=== PATIENT | male | born 1980 | race Caucasian/White ===

== ENCOUNTER 2017-03-13 09:00 | Emergency (ER) | payer SELFPAY ==
[~2017-03-13] VITALS: Ht 182.9 cm; Wt 90.7 kg
--- NOTE | 2017-03-13 09:30 | RAD ---
Right knee with patella, 4 views, 03/13/2017: History: Knee pain No fracture or dislocation is identified. No significant arthritic change is seen. IMPRESSION: No acute right knee abnormality is detected.
[2017-03-13 09:42] VITALS: BP 120/81
--- NOTE | 2017-03-13 10:16 | PHYS DOC ---
Past Medical History Past Medical History: No Pertinent History, Other Additional Past Medical Histor: SKULL FX Past Surgical History: Cholecystectomy, Other Additional Past Surgical Histo: RECONSTRUCTION SX ON HEAD Alcohol Use: Rarely Drug Use: None Adult General Chief Complaint Chief Complaint: KNEE INJURY [facility] HPI Patient is a 36 year old male presents to the emergency department stating that he has having right knee pain and discomfort. He states the pain is located in the right upper medial area. Patient denies any injury or trauma. He does state however at work when he tries to kneel down and get up he has increased pain and discomfort. He states that yesterday he went home early and try to rest and ice it with no relief. He denies any numbness or tingling down to his lower extremity. Patient states he has not seen an orthopedic however the pain just started within the last few days. Review of Systems Review of Systems Constitutional: Denies fever or chills [] Eyes: Denies change in visual acuity, redness, or eye pain [] HENT: Denies nasal congestion or sore throat [] Respiratory: Denies cough or shortness of breath [] Cardiovascular: No additional information not addressed in HPI [] GI: Denies abdominal pain, nausea, vomiting, bloody stools or diarrhea [] : Denies dysuria or hematuria [] Musculoskeletal: Denies back pain. Right knee pain and discomfort Integument: Denies rash or skin lesions [] Neurologic: Denies headache, focal weakness or sensory changes [] Endocrine: Denies polyuria or polydipsia [] Allergies Allergies Allergies Coded Allergies Type Severity Reaction Last Updated Verified No Known Drug Allergies 03/13/17 No Physical Exam Physical Exam Constitutional: Well developed, well nourished, no acute distress, non-toxic appearance. [] HENT: Normocephalic, atraumatic, bilateral external ears normal, oropharynx moist, no oral exudates, nose normal. [] Eyes: PERRLA, EOMI, conjunctiva normal, no discharge. [] Neck: Normal range of motion, no tenderness, supple, no stridor. [] Cardiovascular:Heart rate regular rhythm, no murmur [] Lungs & Thorax: Bilateral breath sounds clear to auscultation [] Abdomen: Bowel sounds normal, soft, no tenderness, no masses, no pulsatile masses. [] Skin: Warm, dry, no erythema, no rash. [] Back: No tenderness Extremities: Right knee tenderness, no cyanosis, no clubbing, ROM intact, no edema. Tenderness noted in the right upper medial knee area. Negative Stef, positive vargus, positive valgus Neurologic: Alert and oriented X 3, normal motor function, normal sensory function, no focal deficits noted. [] Psychologic: Affect normal, judgement normal, mood normal. [] Current Patient Data Vital Signs Vital Signs Date Time Temp Pulse Resp B/P (MAP) Pulse Ox O2 Delivery O2 Flow Rate FiO2 03/13/17 09:42 97.6 97 16 98 Room Air 97.6 EKG EKG [] Radiology/Procedures Radiology/Procedures [][facility] [address] [place] [address] IMAGING REPORT Signed PATIENT: ADRIANA GOODWIN ACCOUNT: [id number] : 1980 LOCATION: ER AGE: 36 SEX: M EXAM STATUS: PRE ER ORD. PHYSICIAN: FRANCIS FUNEZ APRN REASON: knee pain since Friday/no known injury PROCEDURE: KNEE RIGHT 4V Right knee with patella, 4 views, 03/13/2017: History: Knee pain No fracture or dislocation is identified. No significant arthritic change is seen. IMPRESSION: No acute right knee abnormality is detected. DICTATED and SIGNED BY: DIEGO SIEGEL MD DATE: 03/13/17 0927 CC: FRANCIS FUNEZ APRN ~ Course & Med Decision Making Course & Med Decision Making Pertinent Labs and Imaging studies reviewed. (See chart for details) X-rays were negative for any bony abnormalities. Patient will be placed in Omer wrap and a knee immobilizer with recommendations to follow-up with orthopedic. Patient was encouraged to use ice packs on 20 minutes off 20 minutes several times today 800 mg of ibuprofen every 8 hours with food. They also take Tylenol in between the ibuprofen doses. Patient agrees with discharge instructions, treatment regimens and follow-up recommendations. Signs and symptoms to return back to emergency department provided. All questions and concerns been answered at patient's bedside. [] Dragon Disclaimer Dragon Disclaimer This electronic medical record was generated, in whole or in part, using a voice recognition dictation system. Departure Departure Impression: Primary Impression: Right knee pain Disposition: HOME, SELF-CARE Condition: STABLE Referrals: NO PCP (PCP) KATHY REESE MD Patient Instructions: Knee Pain, [id number] Additional Instructions: Activity as tolerated. Wear the knee immobilizer and the Omer wrap for the next week. Ice packs on 20 minutes off 20 minutes several times a day. Ibuprofen 800 mg every 8 hours with food stop taking few develop upset stomach. You may take Tylenol in between ibuprofen doses. Follow up with orthopedic within the next week. Return back to emergency prior signs symptoms of become worse. Problem Qualifiers Primary Impression: Right knee pain Chronicity: acute Qualified Codes: M25.561 - Pain in right knee FRANCIS FUNEZ APRN Mar 13, 2017 10:16
== END 2017-03-13 10:25 | disposition home or self-care (01) ==
LOC: ER 09:00
DX: M25.561 Pain in right knee (principal)
CPT/HCPCS: 29505; 73564; 99284-25